=== PATIENT | female | born 1995 | race Caucasian/White ===

== ENCOUNTER 2020-03-03 03:39 | Inpatient (IN) | payer MEDICAID ==
[2020-03-03] MEDS ORDERED: RINGERS SOLUTION,LACTATED 1,000 ML IV ONE (04:07)
[2020-03-03] MEDS ORDERED: PENICILLIN G POTASSIUM 5,000,000 UNIT in DEXTROSE 5%-WATER 100 ML IV ONE (04:07)
[2020-03-03] MEDS ORDERED: RINGERS SOLUTION,LACTATED 1,000 ML IV PRN ×2 (04:07→06:21)
[2020-03-03] MEDS ORDERED: OXYTOCIN/0.9 % SODIUM CHLORIDE 0 UNIT/0 ML RTUINJ ONE (04:11)
[2020-03-03] MEDS ORDERED: LIDOCAINE 1% INJ-PF (10 MG/ML) 30 ML SDV ONE (04:11)
[2020-03-03] MEDS ORDERED: MISOPROSTOL 0.2 MG TABLET ONE (04:11)
[2020-03-03] MEDS ORDERED: OXYTOCIN 10 UNIT/ML VIAL ONE ×2 (04:11→05:29)
[2020-03-03] MEDS ORDERED: PENICILLIN G-K 5 MILLION UNIT VIAL ONE (04:12)
[2020-03-03 04:17] LABS: APPEARANCE,URINE SLIGHTLY-CLOUDY; BILIRUBIN,URINE NEGATIVE (NEGATIVE); COLOR,URINE YELLOW; GLUCOSE, URINE NEGATIVE (NEGATIVE); KETONES,URINE NEGATIVE (NEGATIVE); LEUKOCYTE ESTERASE,URINE NEGATIVE (NEGATIVE); NITRITE,URINE NEGATIVE (NEGATIVE); PROTEIN,URINE NEGATIVE (NEGATIVE); URINE SPECIFIC GRAVITY 1.014; UROBILINOGEN,URINE NEGATIVE mg/dL (<2.0)
[2020-03-03 04:30] LABS: URINE BARBITURATES SCREEN NEGATIVE; URINE BENZODIAZEPINES SCREEN NEGATIVE
[2020-03-03 04:41] LABS: ABSOLUTE EOSINOPHILS # (AUTO) 0.1 10^3/uL (0.0-0.6); ABSOLUTE LYMPHOCYTES (AUTO) 2.1 10^3/uL (0.5-4.7); ABSOLUTE NEUT (AUTO) 9.6 10^3/uL (1.7-8.2); BASOPHILS % (AUTO) 0.2 % (0-2); HEMATOCRIT 37.8 % (36.0-47.0); HEMOGLOBIN 12.5 g/dL (12.0-15.5); MEAN CORPUSCULAR HEMOGLOBIN 27.8 pg (27.0-33.4); MEAN CORPUSCULAR HGB CONC 33.2 g/dL (32.0-36.0); MEAN CORPUSCULAR VOLUME 84 fl (80-97); MONOCYTES % (AUTO) 7.6 % (3-13); PLATELET COUNT 143 10^3/uL (150-450); RED BLOOD COUNT 4.51 10^6/uL (3.72-5.28); RED CELL DISTRIBUTION WIDTH 14.2 % (11.5-14.0); SEGMENTED NEUTROPHILS % (AUTO) 75.2 % (42-78); TOTAL CELLS COUNTED % (AUTO) 100 %; WHITE BLOOD COUNT 12.8 10^3/uL (4.0-10.5)
--- NOTE | 2020-03-03 04:42 | Admission Physical ---
Datetime Report Generated by CPN: 03/03/2020 04:42 CURRENT ADMISSION Chief Complaint: Uterine Contractions Indication for Induction: Not Applicable Admit Impression : Term, Intrauterine Admit Plan: Admit to Unit ALLERGIES Medication Allergies: Yes Medication Allergies: Sulfa (Sulfonamide Antibiotics)/Hives (03/02/2020) Latex: No Latex Allergies OBSTETRICAL HISTORY EDC: 02/29/2020 00:00 : 2 Para: 2 SAB: 0 IAB: 0 Ectopic: 0 Cesareans: 1 VBACs: 0 Multiple Births: 1 SEE RECORDS Alcohol: No Marijuana : No Cocaine: No Other Illicit Drugs: No Cigarettes: Never Smoker. [id number] PHYSICAL EXAM General: Normal HEENT: Normal Neurologic: Normal Thyroid: Normal Heart: Normal Lungs: Normal Breast: Deferred Back: Normal Abdomen: Normal Genitourinary Exam: Normal Extremities: Normal DTRs: Normal Pelvic Type: Adequate Vital Signs: Reviewed VAGINAL EXAM Dilatation: 8 Effacement: 90 Station: -2 MEMBRANES Pooling: Negative Membranes: Intact FETUS A Monitoring: External US FHR- Baseline: 120 Variability: Moderate 6-25bpm Decelerations: None FHR Category: Category I Estimated Weight (gm): 5000 Presentation: Vertex Admit Comment: Will admit. She is 40 wks and 3 days. The baby is macrosomic. Will discuss options. PLANS FOR LABOR AND DELIVERY Feeding Preference: Breast INFORMED CONSENT Signature: with User ID: Cristel
[2020-03-03] MEDS ORDERED: CEFAZOLIN 2 GM/D5W RTU 2 GM/50 ML RTUPB IV ONE (04:45)
[2020-03-03] MEDS ORDERED: CITRIC ACID/SODIUM CITRATE ORAL SOLN 15 ML UDCUP ONE (04:45)
[2020-03-03 04:50] LABS: URINE AMPHETAMINES SCREEN NEGATIVE; URINE COCAINE SCREEN NEGATIVE; URINE MARIJUANA (THC) SCREEN NEGATIVE; URINE PHENCYCLIDINE SCREEN NEGATIVE
[2020-03-03] MEDS ORDERED: CEFAZOLIN 2 GM/D5W RTU 2 GM/50 ML RTUPB IV PRN (05:00)
[2020-03-03 05:10] LABS: URINE METHADONE SCREEN NEGATIVE
[2020-03-03] MEDS ORDERED: HYDROMORPHONE HCL INJ/PF 2 MG/ML AMPULE ONE (05:29)
[2020-03-03] MEDS ORDERED: OXYTOCIN/0.9 % SODIUM CHLORIDE 30 UNIT/500 ML RTUINJ ONE (05:29)
[2020-03-03] MEDS ORDERED: FENTANYL CITRATE INJ/PF 100 MCG/2 ML AMPUL ONE ×2 (05:29→06:50)
[2020-03-03] MEDS ORDERED: ACETAMINOPHEN 1,000 MG/100 ML RTUPB IV ONE (05:29)
[2020-03-03] MEDS ORDERED: ONDANSETRON HCL INJ/PF 4 MG/2 ML SDV ONE (05:29)
[2020-03-03] MEDS ORDERED: KETOROLAC TROMETHAMINE INJ/PF 30 MG/1 ML SDV ONE (05:37)
[2020-03-03] MEDS ORDERED: PROMETHAZINE HCL INJ 25 MG/1 ML VIAL IV PRN (06:21)
[2020-03-03] MEDS ORDERED: OXYTOCIN/0.9 % SODIUM CHLORIDE 30 UNIT/500 ML RTUINJ IV PRN (06:21)
[2020-03-03] MEDS ORDERED: ACETAMINOPHEN 1,000 MG/100 ML RTUPB IV PRN (06:21)
[2020-03-03] MEDS ORDERED: ACETAMINOPHEN 325 MG TABLET PO PRN (06:21)
[2020-03-03] MEDS ORDERED: MEASLES,MUMPS&RUBELLA VACC/PF 0.5 ML VIAL SUBCUT PRN (06:21)
[2020-03-03] MEDS ORDERED: OXYCODONE-ACETAMINOPHEN 5-325 MG TABLET PO PRN (06:21)
[2020-03-03] MEDS ORDERED: DIPH/PERTUSS(ACELL)/TETANUS VAC/PF 0.5 ML SYR (>=10YO) IM PRN (06:21)
[2020-03-03] MEDS ORDERED: HYDROMORPHONE HCL INJ/PF 2 MG/ML AMPULE IV PRN (06:21)
--- NOTE | 2020-03-03 06:30 | Operative Report ---
Operative Report DATE OF SURGERY: 03/03/20 PREOPERATIVE DIAGNOSIS: Planned repeat with macrosomia POSTOPERATIVE DIAGNOSIS: Same OPERATION: Repeat via low transverse uterine incision SURGEON: NIRMALA KNOX ANESTHESIA: GA TISSUE REMOVED OR ALTERED: Placenta COMPLICATIONS: None ESTIMATED BLOOD LOSS: 800 cc INTRAOPERATIVE FINDINGS: Viable female infant weighing 9 pounds 13 ounces, Apgars 9/9, normal uterus tubes and ovaries PROCEDURE: Patient was taken to the OR and placed in supine position after her general anesthesia. She is prepared and draped in sterile fashion. Dash was placed for drainage of the bladder. Low transverse incision was made and carried down the level of the fascia. The fascial incision was made with knife and extended bilaterally with curved Martel scissors. The fascia was off the rectus muscles using sharp and blunt dissection. The rectus muscles are in the midline. The peritoneum was entered without incident. Bladder blade was placed in uterine segment was identified. A low transverse incision was made creating a bladder flap. Bladder blade was placed low transverse uterine incision was made with the knife and extended with fingertips. The baby was delivered with with the assistance of a vaginal hand and some fundal pressure. The baby was occiput posterior. Mouth and nose were suctioned free. The cord is doubly clamped and cut. Baby is passed off to the charter boat operator in attendance. The placenta was manually extracted with trailing membranes. The uterus was externalized wrapped in a moist lap sponge. Uterine contents wiped free. A bleeding branch of the uterine artery on the patient's left was doubly ligated with 0 chromic to stop bleeding. Uterus was closed with a running locking layer of 0 chromic suture using the second layer to imbricate the first completing a double layer closure of the uterus. The serosa was closed with a running 2-0 chromic stitch. The pelvis was irrigated and suctioned free of fluid the uterus was replaced in the abdomen. The abdominal wall peritoneum was closed with running 2-0 chromic stitch. Fascia was closed with a running 0 Vicryl in 2 segments. Roopa's layer was brought together with 0 plain gut stitch and the skin was closed with running subcuticular 4-0 undyed Vicryl stitch. The wound was dressed mother and baby did well.
[2020-03-03] MEDS ORDERED: PROPOFOL INJ 200 MG/20 ML VIAL IV ONE (06:45)
[2020-03-03] MEDS ORDERED: SUCCINYLCHOLINE CHLORIDE INJ 200 MG/10 ML VIAL ONE (06:46)
[2020-03-03] MEDS ORDERED: MORPHINE SULFATE 10 MG/ML INJ ONE (07:41)
[2020-03-03] MEDS ORDERED: PENICILLIN G POTASSIUM 2,500,000 UNIT in DEXTROSE 5%-WATER 50 ML IV SCH (08:00)
--- NOTE | 2020-03-03 08:47 | Birth Certificate Data ---
Cert Data Datetime Report Generated by CPN: 03/03/2020 08:47 CERTIFICATE DATA 47a. Care: Yes (03/03/2020 04:40:Joanna Smith RN) 48b. Now Livin (03/03/2020 04:40:Joanna Smith RN) RISK FACTORS IN THIS 49a. Diabetes: No (03/03/2020 04:40:Joanna Smith RN) 49b. Hypertension: No (03/03/2020 04:40:Joanna Smith RN) 49c. Previous Births: 0 (03/03/2020 04:40:Joanna Smith RN) 49d. Stillborns: No (03/03/2020 04:40:Joanna Smith RN) 49d. IUGR: No (03/03/2020 04:40:Joanna Smith RN) 49e. Infertility Treatment: No (03/03/2020 04:40:Joanna Smith RN) 49f. Previous Cesareans: 1 (03/03/2020 04:40:Joanna Smith RN) Mother's Height 50b. Height Inches: 66 (03/03/2020 08:30:QS system process) Mother's Weight 51b. Weight at Time of Delivery: 273 (03/03/2020 04:07:QS system process) Infections Present/Treated 53a. Gonorrhea: No (03/03/2020 04:40:Joanna Smith RN) 53b. Syphilis: No (03/03/2020 04:40:Joanna Smith RN) Results this Hospital Visit: NONREACTIVE (03/03/2020 04:22:QS system process) 53c. Chlamydia: No (03/03/2020 04:40:Joanna Smith RN) 53d. Hepatitis B: No (03/03/2020 04:40:Joanna Smith RN) Results this Hospital Visit: Negative (03/03/2020 04:40:Joanna Smith RN) Onset of Labor 56a. PROM >12 Hrs: 0.65 (03/03/2020 04:40:QS system process) 56b. Precipitous Labor <3 Hrs: 3 (03/03/2020 04:40:QS system process) 56c. Prolonged Labor > 20 Hrs: 3 (03/03/2020 04:40:QS system process) 57a. Induction of Labor: N/A (03/03/2020 04:40:Joanna Smith RN) 57d. Steroids - Lung Mat: None (03/03/2020 04:40:Joanna Smith RN) 57d. Steroids - Lung Mat: Not Applicable (03/03/2020 04:40:Joanna Smith RN) 57e. Antibiotics During Labor: 03/03/2020 04:21 (03/03/2020 04:40:Joanna Smith RN) 57g. Moderate/Heavy Meconium: Moderate Meconium (03/03/2020 04:50:Joanna Smith RN) 57h. Intolerance of Labor: Repeat Elective (03/03/2020 04:40:Joanna Smith RN) 57i. Epidural/Spinal Anesthesia: None (03/03/2020 04:40:Joanna Smith RN) Method of Delivery 58a. Forceps - Unsuccessful A: N/A (03/03/2020 04:40:Joanna Smith RN) 58b. Vacuum - Unsuccessful A: N/A (03/03/2020 04:40:Joanna Smith RN) 58c. Presentation at 58c. Presentation at - A : N/A (03/03/2020 04:40:Joanna Smith RN) 58c. Presentation at - A : Cephalic (03/03/2020 04:40:Joanna Smith RN) Final Route and Method of Del 58d. Baby A Route/Delivery: (03/03/2020 04:40:Joanna Smith RN) 58e. Trial of Labor Attempted: No (03/03/2020 04:40:Joanna Smith RN) 58e. Trial of Labor Attempted A: N/A (03/03/2020 04:40:Joanna Smith RN) 58e. Trial of Labor Attempted B: N/A (03/03/2020 04:40:Joanna Smith RN) Maternal Morbidity 59b. 3rd or 4th Degree Lacs: None (03/03/2020 04:40:Joanna Smith RN) Birthweight Baby A: 4450 (03/03/2020 04:40:Bertha DM Esposito) 60a. Pounds : 9 (03/03/2020 04:40:QS system process) 60b. Ounces: 13 (03/03/2020 04:40:QS system process) 61. GA at Delivery Baby A: 40.3 (03/03/2020 04:40:Joanna Smith RN) : Full Term- 39- 40.6 Weeks (03/03/2020 04:40:QS system process) 62a. 5 Minute Baby A: 9 (03/03/2020 04:40:QS system process)
--- NOTE | 2020-03-03 08:47 | Delivery Summary ---
Del Sum A-C Datetime Report Generated by CPN: 03/03/2020 08:47 DELIVERY PERSONNEL DELIVERY PERSONNEL: [id number] Delivery Doctor:: Finesse Eisenberg MD Anesthesiologist:: Dr. Briseida Atwood FOREST LOGISTICS MANAGER:: Usha Hightower CRNA Ingredient Mixer:: Joanna Smith, RN Lyft Driver/TOW MOTOR MECHANIC: Janet Desiree, ST Lyft Driver/TOW MOTOR MECHANIC: JSmoczenski MATERNAL INFORMATION Delivery Anesthesia: General Medications After Delivery: Pitocin 30 Units in 500ml NS/D5W Maternal Complications: None LABOR SUMMARY EDC: 02/29/2020 00:00 No. Babies in Womb: 1 Attempted: No Labor Anesthesia: None LABOR INFORMATION Reason for Induction: Not Applicable Onset of Labor: 03/03/2020 02:00 Complete Dilatation: 03/03/2020 04:54 Oxytocin: N/A Group B Beta Strep: Positive Antibiotics # of Doses: 1 Antibiotics Time of Last Dose: 03/03/2020 04:21 Name of Antibiotic Given: PCN Steroids Given: None Reason Steroids Not Administered: Not Applicable MEMBRANES Membranes Rupture Method: Spontaneous Rupture of Membranes: 03/03/2020 04:50 Length of Rupture (hr): 0.65 Amniotic Fluid Color: Moderate Meconium Amniotic Fluid Amount: Moderate Amniotic Fluid Odor: Normal STAGES OF LABOR Stage 1 hr: 2 Stage 1 min: 54 Stage 2 hr: 0 Stage 2 min: 35 Stage 3 hr: 0 Stage 3 min: 1 Total Time in Labor hr: 3 Total Time in Labor min: 30 VAGINAL DELIVERY Episiotomy: None Laceration #1: None Laceration Extension #1: N/A Laceration Repair: Not Applicable Sponge Count Correct: N/A Sharps Count Correct: N/A CSECTION DELIVERY Primary Indication: Repeat Elective CSection Urgency: Non-Scheduled CSection Incidence: Repeat Labor: Labor Elective: Elective CSection Incision: Lower Uterine Transverse BABY A INFORMATION Delivery Date/Time: 03/03/2020 05:29 Method of Delivery: Nurse Controlled Delivery: No Born in Route : No : N/A Forceps: N/A Vacuum Extraction: N/A Shoulder Dystocia : No PRESENTATION/POSITION BABY A Presentation: Cephalic Breech Presentation: N/A PLACENTA INFORMATION BABY A Placenta Delivery Time : 03/03/2020 05:30 Placenta Method of Delivery: Manual Removal Placenta Status: Delivered SCORES BABY A Heart Rate 1 min: >100 bpm Resp Effort 1 min: Good Cry Reflex Irritability 1 min: Cough or Sneeze or Pulls Away Muscle Tone 1 min: Active Motion Color 1 min: Body [place], Extremities Blue Resuscitation Effort 1 min: Tactile Stimulation SCORE 1 MIN: 9 Heart Rate 5 min: >100 bpm Resp Effort 5 min: Good Cry Reflex Irritability 5 min: Cough or Sneeze or Pulls Away Muscle Tone 5 min: Active Motion Color 5 min: Body [place], Extremities Blue SCORE 5 MIN: 9 INFANT INFORMATION BABY A Gestational Age at Delivery: 40.3 Gestational Status: Full Term- 39- 40.6 Weeks Infant Outcome : Liveborn Infant Condition : Stable Sex: Male IDENTIFICATION BABY A Verification Date/Time: 03/03/2020 06:43 ID Band Number: [id number] Mother's Name Verified: Yes Infant RN Verifying Infant: Landon Smith RN/ SGuillermo Arango RN WEIGHT/LENGTH BABY A Birthweight (gm): 4450 Infant Weight (lb): 9 Weight (oz): 13 Length (in): 20.00 Infant Length (cm): 50.80 CORD INFORMATION BABY A No. Cord Vessels: 3 Nuchal Cord : N/A Cord Blood Taken: Yes-For Eval (Mom's Blood Type - or O+) ASSESSMENT BABY A Skin to Skin: No Transferred To: Nursery BABY B INFORMATION : N/A
[2020-03-03] MEDS: DOCUSATE SODIUM 100 MG CAPSULE PO SCH ×2 (09:57→17:41)
[2020-03-03] MEDS: PRENATAL VITAMIN W DHA CAPSULE PO SCH (09:57)
[2020-03-03] MEDS: SIMETHICONE 80 MG TAB.CHEW PO PRN ×2 (09:59→15:51)
[2020-03-03] MEDS: OXYCODONE-ACETAMINOPHEN 5-325 MG TABLET PO PRN ×2 (11:21→15:51)
[2020-03-03] MEDS: KETOROLAC TROMETHAMINE INJ/PF 30 MG/1 ML SDV IV SCH ×2 (14:24→22:38)
[2020-03-03 22:16] LABS: HEMATOCRIT 25.7 % (36.0-47.0); MEAN CORPUSCULAR HEMOGLOBIN 28.6 pg (27.0-33.4); MEAN CORPUSCULAR HGB CONC 33.4 g/dL (32.0-36.0); MEAN CORPUSCULAR VOLUME 86 fl (80-97); PLATELET COUNT 114 10^3/uL (150-450); RED BLOOD COUNT 3.01 10^6/uL (3.72-5.28); WHITE BLOOD COUNT 12.2 10^3/uL (4.0-10.5)
[2020-03-03 22:17] LABS: HEMOGLOBIN 8.6 g/dL (12.0-15.5)
[2020-03-04] MEDS: IBUPROFEN 800 MG TABLET PO SCH ×4 (05:27→23:15)
[2020-03-04 05:41] LABS: HEMATOCRIT 27.8 % (36.0-47.0); HEMOGLOBIN 9.4 g/dL (12.0-15.5); MEAN CORPUSCULAR HEMOGLOBIN 28.9 pg (27.0-33.4); MEAN CORPUSCULAR HGB CONC 33.9 g/dL (32.0-36.0); MEAN CORPUSCULAR VOLUME 85 fl (80-97); PLATELET COUNT 117 10^3/uL (150-450); RED BLOOD COUNT 3.27 10^6/uL (3.72-5.28); WHITE BLOOD COUNT 12.6 10^3/uL (4.0-10.5)
[2020-03-04] MEDS: DOCUSATE SODIUM 100 MG CAPSULE PO SCH ×2 (09:31→17:26)
[2020-03-04] MEDS: PRENATAL VITAMIN W DHA CAPSULE PO SCH (09:31)
--- NOTE | 2020-03-04 11:20 | PDOC PROGRESS REPORT ---
Subjective-OB Progress Note for:: 03/04/20 Subjective: Doing well, no c/o, holding baby, talking on phone, passing gas Physical Exam (OB) Vital Signs: Temp Pulse Resp BP Pulse Ox 98.2 F 95 18 131/63 H 100 03/04/20 09:38 03/04/20 09:38 03/04/20 09:38 03/04/20 09:38 03/04/20 09:38 Intake & Output 03/03/20 03/04/20 03/05/20 06:59 06:59 06:59 Intake Total 1910 300 Output Total 1550 Balance 360 300 Weight 124 kg - PIH/Pre-Eclampsia Headache: Absent Epigastric Pain: No Visual Changes: No - Dressing Removed: No Incision: Dressing Closure Type: Surgical Glue - Maternal Morbidity 59. Maternal Morbidity (serious complications experinced by the mother associated with labor and delivery: Maternal transfusion - Lochia Lochia Amount: Scant < 10 ml Lochia Color: Rubra/Red - Abdomen Description: Soft Hernia Present: No Fundal Description: Firm, Midline Fundal Height: u/u - u/2 Objective-Diagnostic Laboratory: 03/04/20 05:23 03/03/20 03/03/20 03/04/20 04:22 22:10 05:23 WBC 12.2 H 12.6 H RBC 3.01 L 3.27 L Hgb 8.6 L D 9.4 L Hct 25.7 L 27.8 L MCV 86 85 MCH 28.6 28.9 MCHC 33.4 33.9 RDW 14.0 14.0 Plt Count 114 L 117 L Blood Type O NEGATIVE Antibody Screen NEGATIVE 03/04/20 05:23 WBC RBC Hgb Hct MCV MCH MCHC RDW Plt Count Blood Type O NEGATIVE Antibody Screen Assessment and Plan(PN) - Assessment and Plan (1) Depression Qualifiers: Major depression episode severity: unspecified Is this a current diagnosis for this admission?: Yes (2) Blood transfusion during current hospitalization Is this a current diagnosis for this admission?: Yes (3) Rh negative status during Qualifiers: Trimester: first trimester Qualified Code(s): O26.891 - Other specified related conditions, first trimester; Z67.91 - Unspecified blood type, Rh negative Is this a current diagnosis for this admission?: Yes (4) Anemia associated with acute blood loss Is this a current diagnosis for this admission?: Yes (5) S/P repeat low transverse Is this a current diagnosis for this admission?: Yes - Time Spent with Patient Time with patient: Less than 15 minutes Medications reviewed and adjusted accordingly: Yes - Disposition Anticipated Discharge Disposition: Home, Self Care Anticipated Discharge Timeframe: within 24 hours
[2020-03-04 12:35] LABS: HEMATOCRIT 29.7 % (36.0-47.0); MEAN CORPUSCULAR HEMOGLOBIN 28.8 pg (27.0-33.4); MEAN CORPUSCULAR HGB CONC 33.6 g/dL (32.0-36.0); MEAN CORPUSCULAR VOLUME 86 fl (80-97); PLATELET COUNT 120 10^3/uL (150-450); RED BLOOD COUNT 3.46 10^6/uL (3.72-5.28); RED CELL DISTRIBUTION WIDTH 13.8 % (11.5-14.0)
[2020-03-05] MEDS: IBUPROFEN 800 MG TABLET PO SCH ×2 (06:37→11:14)
--- NOTE | 2020-03-05 09:15 | PDOC PROGRESS REPORT ---
Subjective-OB Progress Note for:: 03/05/20 Subjective: feeling alot better today, breast feeding, voiding, passing gas, pain under control Physical Exam (OB) Vital Signs: Temp Pulse Resp BP Pulse Ox 98.3 F 78 18 110/50 L 99 03/05/20 07:41 03/05/20 07:41 03/05/20 07:41 03/05/20 08:12 03/05/20 07:41 Intake & Output 03/04/20 03/05/20 03/06/20 06:59 06:59 06:59 Intake Total 1910 300 300 Output Total 1550 Balance 360 300 300 - PIH/Pre-Eclampsia Clonus: Negative Headache: Absent Epigastric Pain: No Visual Changes: No - Dressing Removed: No Incision: Dressing Closure Type: Surgical Glue - Maternal Morbidity 59. Maternal Morbidity (serious complications experinced by the mother associated with labor and delivery: Maternal transfusion - Lochia Lochia Amount: Scant < 10 ml Lochia Color: Rubra/Red - Abdomen Description: Soft Hernia Present: No Fundal Description: Firm, Midline Fundal Height: u/u - u/2 Objective-Diagnostic Laboratory: 03/04/20 11:42 03/04/20 03/04/20 05:23 11:42 WBC 13.0 H RBC 3.46 L Hgb 10.0 L Hct 29.7 L MCV 86 MCH 28.8 MCHC 33.6 RDW 13.8 Plt Count 120 L Blood Type O NEGATIVE Assessment and Plan(PN) - Assessment and Plan (1) Depression Qualifiers: Major depression episode severity: unspecified Is this a current diagnosis for this admission?: Yes (2) Blood transfusion during current hospitalization Is this a current diagnosis for this admission?: Yes (3) Rh negative status during Qualifiers: Trimester: first trimester Qualified Code(s): O26.891 - Other specified pr egnancy related conditions, first trimester; Z67.91 - Unspecified blood type, Rh negative Is this a current diagnosis for this admission?: Yes (4) Anemia associated with acute blood loss Is this a current diagnosis for this admission?: Yes (5) S/P repeat low transverse Is this a current diagnosis for this admission?: Yes - Time Spent with Patient Time with patient: Less than 15 minutes Medications reviewed and adjusted accordingly: Yes - Disposition Anticipated Discharge Disposition: Home, Self Care Anticipated Discharge Timeframe: within 24 hours - home today
--- NOTE | 2020-03-05 09:22 | PDOC DISCHARGE SUMMARY ---
Impression - Admit/DC Date/PCP Admission Date/Primary Care Provider: 03/03/20 03:39 NIRMALA KNOX MD Discharge Date: 03/05/20 - Discharge Diagnosis (1) Depression Is this a current diagnosis for this admission?: Yes (2) Blood transfusion during current hospitalization Is this a current diagnosis for this admission?: Yes (3) Rh negative status during Is this a current diagnosis for this admission?: Yes (4) Anemia associated with acute blood loss Is this a current diagnosis for this admission?: Yes (5) S/P repeat low transverse Is this a current diagnosis for this admission?: Yes - Additional Information Resuscitation Status: Full Code Discharge Diet: As Tolerated, Regular Discharge Activity: Activity As Tolerated, No Lifting Over 10 Pounds, No Lifting/Push/Pulling, Pelvic Rest Referrals: NIRMALA KNOX MD [Primary Care Provider] - Prescriptions: Oxycodone HCl/Acetaminophen [Percocet 5-325 mg Tablet] 1 tab PO Q4HP PRN #20 tablet PRN Reason: Home Medications: Oxycodone HCl/Acetaminophen [Percocet 5-325 mg Tablet] 1 tab PO Q4HP PRN #20 ta blet 03/05/20 Vit/Dha [ Multi + Dha Capsule] 1 cap PO DAILY capsule 03/05/20 HPI Gestational Age: 40.3 Reason(s) for Admission: PROM Procedures: NST, Ultrasound Intrapartum Procedure(s): : Low Cervical, Transverse Hospital Course Hospital Course: PPH, blood transfusion x 2 59. Maternal Morbidity (serious complications experinced by the mother associated with labor and delivery: Maternal transfusion Results Laboratory Results: WBC 13.0 10^3/uL (4.0-10.5) H 03/04/20 11:42 RBC 3.46 10^6/uL (3.72-5.28) L 03/04/20 11:42 Hgb 10.0 g/dL (12.0-15.5) L 03/04/20 11:42 Hct 29.7 % (36.0-47.0) L 03/04/20 11:42 MCV 86 fl (80-97) 03/04/20 11:42 MCH 28.8 pg (27.0-33.4) 03/04/20 11:42 MCHC 33.6 g/dL (32.0-36.0) 03/04/20 11:42 RDW 13.8 % (11.5-14.0) 03/04/20 11:42 Plt Count 120 10^3/uL (150-450) L 03/04/20 11:42 Lymph % (Auto) 16.0 % (13-45) 03/03/20 04:22 [place] % (Auto) 7.6 % (3-13) 03/03/20 04:22 Eos % (Auto) 1.0 % (0-6) 03/03/20 04:22 Baso % (Auto) 0.2 % (0-2) 03/03/20 04:22 Absolute Neuts (auto) 9.6 10^3/uL (1.7-8.2) H 03/03/20 04:22 Absolute Lymphs (auto) 2.1 10^3/uL (0.5-4.7) 03/03/20 04:22 Absolute Monos (auto) 1.0 10^3/uL (0.1-1.4) 03/03/20 04:22 Absolute Eos (auto) 0.1 10^3/uL (0.0-0.6) 03/03/20 04:22 Absolute Basos (auto) 0.0 10^3/uL (0.0-0.2) 03/03/20 04:22 Seg Neutrophils % 75.2 % (42-78) 03/03/20 04:22 Urine Color YELLOW 03/03/20 03:55 Urine Appearance SLIGHTLY-CLOUDY 03/03/20 03:55 Urine pH 6.0 (5.0-9.0) 03/03/20 03:55 Ur Specific [place] 1.014 03/03/20 03:55 Urine Protein NEGATIVE mg/dL (NEGATIVE) 03/03/20 03:55 Urine Glucose (UA) NEGATIVE mg/dL (NEGATIVE) 03/03/20 03:55 Urine Ketones NEGATIVE mg/dL (NEGATIVE) 03/03/20 03:55 Urine Blood SMALL (NEGATIVE) H 03/03/20 03:55 Urine Nitrite NEGATIVE (NEGATIVE) 03/03/20 03:55 Urine Bilirubin NEGATIVE (NEGATIVE) 03/03/20 03:55 Urine Urobilinogen NEGATIVE mg/dL (<2.0) 03/03/20 03:55 Ur Leukocyte Esterase NEGATIVE (NEGATIVE) 03/03/20 03:55 Urine Ascorbic Acid NEGATIVE (NEGATIVE) 03/03/20 03:55 Urine Opiates Screen NEGATIVE 03/03/20 03:55 Urine Methadone Screen NEGATIVE 03/03/20 03:55 Ur Barbiturates Screen NEGATIVE 03/03/20 03:55 Ur Phencyclidine Scrn NEGATIVE 03/03/20 03:55 Ur Amphetamines Screen NEGATIVE 03/03/20 03:55 U Benzodiazepines Scrn NEGATIVE 03/03/20 03:55 Urine Cocaine Screen NEGATIVE 03/03/20 03:55 U Marijuana (THC) Screen NEGATIVE 03/03/20 03:55 RPR NONREACTIVE (NONREACTIVE) 03/03/20 04:22 COVID-19 Source NASOPHARYNGEAL 02/29/20 11:40 COVID-19 (DEBI) NOT DETECTED 02/29/20 11:40 Blood Type O NEGATIVE 03/04/20 05:23 Blood Type Confirm O NEGATIVE 03/03/20 23:07 Antibody Screen NEGATIVE 03/03/20 04:22 Screen NEGATIVE 03/04/20 05:23 Crossmatch See Detail 03/03/20 04:22 Plan Health Concerns: anemia, post op pain Plan of Treatment: discharge home, Iron BID, pain meds, rev S&S to report Goals: no complications Time Spent: Less than 30 Minutes
[2020-03-05] MEDS: DOCUSATE SODIUM 100 MG CAPSULE PO SCH (11:14)
[2020-03-05] MEDS: PRENATAL VITAMIN W DHA CAPSULE PO SCH (11:14)
[2020-03-05 12:04] VITALS: BP 139/73
== END 2020-03-05 13:06 | disposition home or self-care (01) | DRG 787 ==
LOC: LR 03:39 → 2N 08:30
PROVIDERS: ADMIT Obstetrics & Gynecology; ATTEND Obstetrics & Gynecology
PROC: 10D00Z1 Extraction of Products of Conception, Low, Open Approach (ICD-10-PCS; principal; 2020-03-03)
PROC: 30233N1 Transfusion of Nonautologous Red Blood Cells into Peripheral Vein, Percutaneous Approach (ICD-10-PCS; 2020-03-04)
PROC: 3E0234Z Introduction of Serum, Toxoid and Vaccine into Muscle, Percutaneous Approach (ICD-10-PCS; 2020-03-05)
DX: O36.63X0 Maternal care for excessive fetal growth, third trimester, not applicable or unspecified (principal); D62 Acute posthemorrhagic anemia; O26.893 Other specified pregnancy related conditions, third trimester; O99.02 Anemia complicating childbirth; O34.211 Maternal care for low transverse scar from previous cesarean delivery; O99.824 Streptococcus B carrier state complicating childbirth; Z37.0 Single live birth; O77.0 Labor and delivery complicated by meconium in amniotic fluid; Z3A.40 40 weeks gestation of pregnancy; Z88.2 Allergy status to sulfonamides; O99.344 Other mental disorders complicating childbirth; F32.9 Major depressive disorder, single episode, unspecified; Z67.41 Type O blood, Rh negative
CPT/HCPCS: 1961; 36415; 36430; 80307; 81005; 85025; 85027; 85461; 86592; 86695; 86696; 86850; 86900; 86901; 86920; 87635; 94760; 94799; 99140; C9803; J0131; J0330; J0690; J1170; J1885; J2270; J2405; J2540; J2590; J2704; J2790; J3010; J3490; P9016

== ENCOUNTER 2020-03-09 19:30 | Emergency (ER) | payer MEDICAID ==
--- NOTE | 2020-03-09 20:25 | ER Document Report ---
ED Medical Screen (RME) - General Chief Complaint: Post Surgical Pain Stated Complaint: POST OP PAIN SIGHT POSSIBLE INFECTED Time Seen by Provider: 03/09/20 20:17 Primary Care Provider: NIRMALA KNOX MD [Primary Care Provider] - Follow up as needed Mode of Arrival: Ambulatory Information source: Patient Notes: 24-year-old female presented to ED for 6 days post . She states she has a vaginal discharge that smells like . She states she is achy tired and has no energy. She states this is her second . She states she had twins the first time and discharge was over 9 pounds. She states during the C- section she had a hemorrhage and had to be transfused after the . She states she is got stretching tearing pain on the left side of her incision. Past medical history is a left ACL cadaver. MRSA, genital herpes, and a fractured foot. She is alert oriented respirations regular nonlabored speaking in full sentences. I have greeted and performed a rapid initial assessment of this patient. A comprehensive ED assessment and evaluation of the patient, analysis of test results and completion of medical decision making process will be conducted by an additional ED providers. - Related Data Allergies/Adverse Reactions: Sulfa (Sulfonamide Antibiotics) Allergy (Verified 03/09/20 20:22) Hives Physical Exam - Vital signs Vitals: Temp Pulse Resp BP Pulse Ox 99.6 F 105 H 18 124/76 98 03/09/20 20:06 03/09/20 20:06 03/09/20 20:06 03/09/20 20:06 03/09/20 20:06 Course - Vital Signs Vital signs: Temp Pulse Resp BP Pulse Ox 99.6 F 105 H 18 124/76 98 03/09/20 20:06 03/09/20 20:06 03/09/20 20:06 03/09/20 20:06 03/09/20 20:06 Doctor's Discharge - Discharge Referrals: NIRMALA KNOX MD [Primary Care Provider] - Follow up as needed
[2020-03-09] MEDS ORDERED: ACETAMINOPHEN 325 MG TABLET PO ONE (20:29)
[2020-03-09 21:18] LABS: ABSOLUTE BASOPHILS # (AUTO) 0.1 10^3/uL (0.0-0.2); ABSOLUTE EOSINOPHILS # (AUTO) 0.3 10^3/uL (0.0-0.6); ABSOLUTE MONOCYTES (AUTO) 1.1 10^3/uL (0.1-1.4); ABSOLUTE NEUT (AUTO) 9.9 10^3/uL (1.7-8.2); BASOPHILS % (AUTO) 0.5 % (0-2); EOSINOPHILS % (AUTO) 1.8 % (0-6); HEMATOCRIT 35.8 % (36.0-47.0); HEMOGLOBIN 11.8 g/dL (12.0-15.5); LYMPHOCYTES % (AUTO) 20.7 % (13-45); MEAN CORPUSCULAR HEMOGLOBIN 28.1 pg (27.0-33.4); MEAN CORPUSCULAR HGB CONC 32.9 g/dL (32.0-36.0); MEAN CORPUSCULAR VOLUME 86 fl (80-97); PLATELET COUNT 279 10^3/uL (150-450); RED BLOOD COUNT 4.19 10^6/uL (3.72-5.28); RED CELL DISTRIBUTION WIDTH 14.1 % (11.5-14.0); TOTAL CELLS COUNTED % (AUTO) 100 %; WHITE BLOOD COUNT 14.4 10^3/uL (4.0-10.5)
[2020-03-09 21:31] LABS: ALBUMIN 3.7 g/dL (3.5-5.0); ALKALINE PHOSPHATASE 91 U/L (38-126); ANION GAP 8 (5-19); ASPARTATE AMINO TRANSFERASE 18 U/L (14-36); BILIRUBIN,DIRECT 0.2 mg/dL (0.0-0.4); BILIRUBIN,TOTAL 0.5 mg/dL (0.2-1.3); BLOOD UREA NITROGEN 17 mg/dL (7-20); CARBON DIOXIDE 22 mmol/L (22-30); CHLORIDE 107 mmol/L (98-107); GLUCOSE 103 mg/dL (75-110); POTASSIUM 4.3 mmol/L (3.6-5.0); TOTAL PROTEIN 7.2 g/dL (6.3-8.2)
[2020-03-09 21:33] LABS: APPEARANCE,URINE SLIGHTLY-CLOUDY; BILIRUBIN,URINE NEGATIVE (NEGATIVE); COLOR,URINE YELLOW; GLUCOSE, URINE NEGATIVE (NEGATIVE); KETONES,URINE NEGATIVE (NEGATIVE); LEUKOCYTE ESTERASE,URINE TRACE (NEGATIVE); NITRITE,URINE NEGATIVE (NEGATIVE); PROTEIN,URINE 30 mg/dL (NEGATIVE); URINE SPECIFIC GRAVITY 1.029; UROBILINOGEN,URINE NEGATIVE mg/dL (<2.0)
--- NOTE | 2020-03-10 04:41 | ER Document Report ---
ED General <JOHANN CRUZ Diane - Last Filed: 03/10/20 07:21> - General Mode of Arrival: Ambulatory - Related Data Home Medications: tylenol, percocet, pnv <DELMER ORO - Last Filed: 03/11/20 05:55> - General Chief Complaint: Post Surgical Pain Stated Complaint: POST OP PAIN SIGHT POSSIBLE INFECTED Time Seen by Provider: 03/09/20 20:17 Primary Care Provider: NIRMALA KNOX MD [ACTIVE STAFF] - Follow up as needed - HPI Notes: Patient is a 24-year-old female who presents to the emergency department for evaluation. She had a on March 04. She went home, she had some increased pain on the left side. She states that over the last several days she has developed chills. She has felt feverish at home. She states that her vaginal bleeding has become foul-smelling. She has had nausea. She has had a diminished appetite. She is still urinating. Denies any urinary symptoms. She also became concerned that her wound was "opening up" so she presents to the ED for further evaluation. (DELMER ORO) - Related Data Allergies/Adverse Reactions: Sulfa (Sulfonamide Antibiotics) Allergy (Verified 03/09/20 20:22) Meño Past Medical History - General Information source: Patient - Social History Smoking Status: Former Smoker Chew tobacco use (# tins/day): No Frequency of alcohol use: None Drug Abuse: None Family History: Reviewed & Not Pertinent Patient has homicidal ideation: No Musculoskeletal Medical History: Reports Hx Musculoskeletal Trauma - Foot fracture Past Surgical History: Reports: Hx Section - x2, Hx Orthopedic Surgery <DELMER ORO - Last Filed: 03/11/20 05:55> Review of Systems - Review of Systems Constitutional: See HPI EENT: No symptoms reported Cardiovascular: No symptoms reported Respiratory: No symptoms reported Gastrointestinal: See HPI Genitourinary: No symptoms reported Female Genitourinary: See HPI Musculoskeletal: No symptoms reported Skin: See HPI Neurological/Psychological: No symptoms reported <DELMER ORO - Last Filed: 03/11/20 05:55> Physical Exam <DELMER ORO - Last Filed: 03/11/20 05:55> - Vital signs Vitals: Temp Pulse Resp BP Pulse Ox 99.6 F 105 H 18 124/76 98 03/09/20 20:06 03/09/20 20:06 03/09/20 20:06 03/09/20 20:06 03/09/20 20:06 - Notes Notes: Is a 24-year-old female, who appears her stated age, in no acute distress. Vital signs reviewed, please refer to chart. Head is normocephalic, atraumatic. Pupils equal round, reactive to light. Neck is supple without meningismus. Heart is regular rate and rhythm. Lungs are clear to auscultation bilaterally. Abdomen is soft, moderately tender in the pelvis, normoactive bowel sounds throughout. She has a well approximated and healing section scar in the low Pfannenstiel position. There is a small area of moisture over the left aspect of the wound, but no signs of dehiscence, no purulence, no surrounding erythema. Extremities without cyanosis, clubbing. Posterior calves are nontender. Peripheral pulses are equal. Skin is warm and dry. Patient is awake, alert, neurological exam is nonfocal. Pelvic exam was performed with DM Wilkins, present in the room. Normal external genitalia. Speculum exam is performed. Cervix is closed. Foul-smelling blood/lochia/discharge noted. No significant cervical motion tenderness noted. (DELMER ORO) Course - Laboratory Result Diagrams: 03/09/20 20:55 03/09/20 20:55 <JOHANN CRUZ - Last Filed: 03/10/20 07:21> - Laboratory Result Diagrams: 03/09/20 20:55 03/09/20 20:55 - Diagnostic Test Radiology reviewed: Reports reviewed <DELMER ORO - Last Filed: 03/11/20 05:55> - Re-evaluation Re-evalutation: 03/10/20 04:43 Patient presents to the emergency department for evaluation. She was initially seen through triage. She had laboratory investigations which revealed a leukocytosis. Pelvic set up is ordered. Will obtain vaginal cultures, wet mount. Transvaginal ultrasound was ordered as well. Patient is currently stable, we will continue to monitor. 03/10/20 06:39 I ordered Unasyn. Patient is stable. I spoke with Dr. Giordano. She agrees to treatment for endometritis. Patient actually has a follow-up appointment today. Patient is breast-feeding, so decision was made to treat with Keflex. Will write a prescription. She is to keep the appointment as scheduled today, return to the ED with worsening or new concerning symptoms of any sort. (DELMER ORO) - Vital Signs Vital signs: Temp Pulse Resp BP Pulse Ox 98 F 76 16 136/78 H 100 03/10/20 08:54 03/10/20 08:54 03/10/20 08:54 03/10/20 08:54 03/10/20 08:54 - Laboratory Laboratory results interpreted by me: 03/09/20 03/09/20 20:55 20:55 WBC 14.4 H Hgb 11.8 L Hct 35.8 L RDW 14.1 H Absolute Neuts (auto) 9.9 H Urine Protein 30 H Urine Blood MODERATE H Ur Leukocyte Esterase TRACE H Urine Ascorbic Acid 20 H - Diagnostic Test Radiology results interpreted by me: 03/10/20 06:38 Transvaginal US 03/10/20 04:38 IMPRESSION: Grossly unremarkable but limited examination. Consider CT of the abdomen and pelvis with contrast to better evaluate for any potential abscess or other complication. (DELMER ORO) Discharge <JOHANN CRUZ - Last Filed: 03/10/20 07:21> <DELMER ORO - Last Filed: 03/11/20 05:55> - Discharge Clinical Impression: Endometritis Condition: Stable Disposition: HOME, SELF-CARE Instructions: Endometritis ([facility]) Additional Instructions: Take antibiotic as prescribed. Follow-up with your [facility] today. Return to the emergency department if you develop fever, increased pain, worsening or new concerning symptoms of any sort. Prescriptions: Cephalexin Monohydrate [Keflex 500 mg Capsule] 500 mg PO Q6H 7 Days #28 capsule Cephalexin Monohydrate [Keflex 500 mg Capsule] 500 mg PO QID #40 capsule Referrals: NIRMALA KNOX MD [ACTIVE STAFF] - Follow up as needed
[2020-03-10 05:14] LABS: RBCS (WET MOUNT) 1+ RBCS SEEN; T.VAGINALIS (WET MOUNT) NO TRICHOMONAS SEEN; WBCS (WET MOUNT) 1+ WBCS SEEN; YEAST (WET MOUNT) NO YEAST SEEN
[2020-03-10] MEDS ORDERED: OXYCODONE-ACETAMINOPHEN 5-325 MG TABLET PO ONE (05:41)
--- NOTE | 2020-03-10 05:51 | RADIOLOGY REPORT (SQ) ---
Ultrasound pelvis transvaginal on 03/10/2020 at 5:34 AM CLINICAL INDICATION: Status post section, pain, foul-smelling discharge COMPARISON: None FINDINGS: Multiple sonographic images are obtained throughout the pelvis by transvaginal approach, both transverse and sagittal images are obtained. The uterus is somewhat retroverted/retroflexed. The examination is suboptimal due to the patient's body habitus and bowel gas. The uterus measures approximately 15.5 x 7.4 x 8.9 cm. Endometrial stripe measures approximately 1.8 cm. Neither ovary is visualized. No adnexal mass or fluid collection is noted. IMPRESSION: Grossly unremarkable but limited examination. Consider CT of the abdomen and pelvis with contrast to better evaluate for any potential abscess or other complication.
[2020-03-10] MEDS ORDERED: AMPICILLIN SOD/SULBACTAM 3 GM VIAL IV ONE (06:20)
[2020-03-10 08:56] VITALS: BP 136/78
== END 2020-03-10 08:56 | disposition home or self-care (01) ==
LOC: ER 19:30
DX: N71.9 Inflammatory disease of uterus, unspecified (principal); G89.18 Other acute postprocedural pain; R10.9 Unspecified abdominal pain; R50.9 Fever, unspecified; R11.0 Nausea; R63.0 Anorexia; Z98.890 Other specified postprocedural states; Z88.2 Allergy status to sulfonamides; Z87.891 Personal history of nicotine dependence
CPT/HCPCS: 99285; 96365; 36415; 87040; 87086; 87070; 87205; 87210; 85025; 87077; 87088; 80053; 81001; 76830; 93976; J3490; J0295